=== PATIENT | male | born 1980 | race Hispanic/Latino ===

== ENCOUNTER 2022-10-01 15:30 | Emergency (ER) | payer SELFPAY ==
--- OUTSIDE RECORDS SUMMARY | 2022-10-01 15:32 | XMS REPORT | Continuity of Care Document ---
:1980 Author Organization [facility] t Address [address] [place] [id number] Care Team Providers Name Role Phone Sharpkate Primary Care Physician Problems This patient has no known problems. Allergies, Adverse Reactions, Alerts This patient has no known allergies or adverse reactions. Social History Social Habit Start Date Stop Date Quantity Comments Source Tobacco use and 2017-03-23 2017-03-[address] [facility] exposure 00:00[facility]00 00:00:00 [facility] Alcohol intake 2017-03-23 2017-03-[address] [facility]00 non-drinker of Medical Ce nter alcohol (finding) Sex Assigned At [address] [facility] 00:[facility]:00 00:00:00 [facility] Smoking Status Start Date Stop Date Source Never smoker [facility] Medications This patient has no known medications. Immunizations Ordered Immunization Filled Immunization Date Status Commen ts Source Name Name Tdap 2017-03-[address] [facility] 00:00:00 [facility] Td 2017-03-[address] [facility] 00:00:00 [facility] Procedures This patient has no known procedures. Encounters Start End Encounter Admission Attending Care Care Encounter Source Date/Time Date/Time Type Type Clinicians Facility Department ID 2020-12-17 2020-12-17 Outpatient [facility] 00:00:00 00:00:00 [id number] 2017-04-29 2017-06-17 [facility] [id number] Mobile 00:00:00 00:00:00 [facility] 2017-04-13 2017-04-14 [facility] [id number] Mobile 00:00:00 00:00:00 [facility] Results This patient has no known results.
--- NOTE | 2022-10-01 19:11 | RAD REPORT ---
EXAM DESCRIPTION: CT - Head Brain Wo Cont - 10/01/2022 6:46 pm CLINICAL HISTORY: headache times 2 months Headache, drowsiness COMPARISON: No comparisons TECHNIQUE: All CT scans are performed using dose optimization technique as appropriate and may inclu de automated exposure control or mA/KV adjustment according to patient size. FINDINGS: No intracranial hemorrhage, hydrocephalus or extra-axial fluid collection.No areas of brai n edema or evidence of midline shift. The paranasal sinuses and mastoids are clear. The calvarium is intact. IMPRESSION: No acute intracranial abnormality.
--- NOTE | 2022-10-01 19:24 | EDPHYS ---
Physician Documentation [facility] Name: Wolfgang Trammell Age: 42 yrs Sex: Male : 1980 Arrival Date: 10/01/2022 Time: 15:32 Bed IW1 Private MD: ED Physician Luis F Monroe HPI: 10/01 18:00 This 42 yrs old Male presents to ER via Ambulatory with complaints of Headache.cp 18:00 The patient complains of pain to the top of head and forehead. The patient describes cp the headache as aching, intermittent. Onset: The symptoms/episode began/occurred 1 month(s) ago. Associated signs and symptoms: Pertinent positives: Photophobia Pertinent negatives: altered mental status, fever, neck stiffness, paresthesias, sinus congestion, sinus tenderness, vision loss, vomiting. Severity of symptoms: in the emergency department the pain has improved, moderately. Headache History: Denies prior headaches. the symptoms are aggravated by lights, activity. The patient has not experienced similar symptoms in the past. Historical: - Allergies: 15:47 No Known Allergies; ll1 - PMHx: 15:47 None; ll1 - PSHx: 15:47 jaw SX; L wrist compound FX; ll1 - Immunization history:: Client reports receiving the 2nd dose of the Covid vaccine. - Social history:: Smoking status: Patient reports the use of cigarette tobacco products, smokes one pack cigarettes per day. ROS: 18:05 Constitutional: Negative for body aches, chills, fever, poor PO intake. cp 18:05 Eyes: Negative for injury, pain, redness, and discharge. cp 18:05 ENT: Negative for drainage from ear(s), sore throat, difficulty swallowing, difficulty handling secretions. 18:05 Neck: Negative for pain with movement, pain at rest, stiffness. 18:05 Cardiovascular: Negative for chest pain, palpitations. 18:05 Respiratory: Negative for cough, shortness of breath, wheezing. 18:05 Abdomen/GI: Negative for abdominal pain, vomiting, diarrhea, constipation. 18:05 Back: Negative for pain at rest, pain with movement. 18:05 Neuro: Positive for headache, Negative for altered mental status, dizziness, numbness, syncope, weakness. 18:05 All other systems are negative. Exam: 18:10 Constitutional: The patient appears in no acute distress, alert, awake, cp non-diaphoretic, non-toxic, well developed, well nourished. 18:10 Head/Face: Normocephalic, atraumatic. cp 18:10 Eyes: Periorbital structures: appear normal, Pupils: equal, round, and reactive to cp light and accomodation, Extraocular movements: intact throughout, Conjunctiva: normal, no exudate, no injection, Sclera: no appreciated abnormality, Lids and lashes: appear normal, bilaterally. 18:10 ENT: External ear(s): are unremarkable, Ear canal(s): are normal, clear, TM's: bulging, cp is not appreciated, bilaterally, dullness, bilaterally, erythema, is not appreciated, bilaterally, Nose: is normal, Mouth: Lips: moist, Oral mucosa: moist, Posterior pharynx: Airway: no evidence of obstruction, patent, swelling, is not appreciated, erythema, is not appreciated, exudate, is not appreciated. 18:10 Neck: C-spine: vertebral tenderness, is not appreciated, crepitus, is not appreciated, ROM/movement: is normal, is supple, without pain, no range of motions limitations, no nuchal rigidity. 18:10 Chest/axilla: Inspection: normal. 18:10 Cardiovascular: Rate: normal, Rhythm: regular, Pulses: Pulses are 2+ in right radial artery and left radial artery. JVD: is not appreciated. 18:10 Respiratory: the patient does not display signs of respiratory distress, Respirations: normal, no use of accessory muscles, no retractions, labored breathing, is not present, Breath sounds: are clear throughout, no decreased breath sounds, no stridor, no wheezing. 18:10 Abdomen/GI: Inspection: abdomen appears normal, Palpation: abdomen is soft and non-tender, in all quadrants. 18:10 Back: pain, is absent, ROM is normal. 18:10 Neuro: Orientation: to person, place \T\ time. Mentation: is normal, Cerebellar function: is grossly normal, Motor: moves all fours, strength is normal, Sensation: is normal, Gait: is steady, at a normal pace, without difficulty. Vital Signs: 15:45 BP 136 / 77; Pulse 94; Resp 17; Temp 99.0; Pulse Ox 98% ; Weight 77.11 kg; Height 5 ft. ll1 10 in. (177.80 cm); Pain 0/10; 19:23 BP 127 / 87; Pulse 64; Resp 18; Pulse Ox 98% ; kd3 15:45 Body Mass Index 24.39 (77.11 kg, 177.80 cm) ll1 MDM: 18:15 Patient medically screened. cp 19:00 Differential diagnosis: cluster headache, hypertensive headache, meningitis, cp meningoencephalitis, migraine, sinusitis, subarachnoid bleed, subdural hematoma, tension headache. 19:23 Data reviewed: vital signs, nurses notes, radiologic studies, CT scan. cp 19:23 Counseling: I had a detailed discussion with the patient and/or guardian regarding: the cp historical points, exam findings, and any diagnostic results supporting the discharge/admit diagnosis, radiology results, the need for outpatient follow up, a neurologist, to return to the emergency department if symptoms worsen or persist or if there are any questions or concerns that arise at home. Response to treatment: the patient's symptoms have mildly improved after treatment, and as a result, I will discharge patient. ED course: VSS. CT results negative for acute findings. Will discharge to home for continued monitoring. 10/01 18:33 Order name: Glucose, Ancillary Testing; Complete Time: 19:15 EDMS 10/01 19:16 Interpretation: GLUC,ANCIL 107; Reviewed. 10/01 17:41 Order name: CT Head Brain wo Cont; Complete Time: 19:15 cp 10/01 19:16 Interpretation: Report reviewed. 10/01 17:41 Order name: Accucheck Blood Glucose; Complete Time: 18:24 cp Administered Medications: No medications were administered Point of Care Testing: Blood Glucose: 18:25 Blood Glucose: 107 mg/dL; jl7 Ranges: Critical Glucose Levels:Adult <50 mg/dl or >400 mg/dl <40 mg/dl or >180 mg/dl Disposition Summary: 10/01/22 19:24 Discharge Ordered Location: Home cp Problem: new cp Symptoms: have improved cp Condition: Stable cp Diagnosis - Headache cp Followup: cp - With: Simon Delgadillo MD - When: 1 week - Reason: Recheck today's complaints Discharge Instructions: - General Headache Without Cause cp - Discharge Summary Sheet ll1 Forms: - Medication Reconciliation Form cp - Work release form ll1 - Thank You Letter cp - Antibiotic Education cp - Prescription Opioid Use cp Prescriptions: - Ibuprofen 800 mg Oral Tablet - take 1 tablet by ORAL route every 8 hours As needed take with food; 30 tablet; cp Refills: 0, Product Selection Permitted Addendum: 10/04/2022 08:28 Co-signature as Attending Physician, Luis F Monroe MD I agree with the assessment and c elizabeth plan of care. Signatures: Dispatcher [employer] EDMO Luis F Monroe MD MD cha Page, Corey, PA PA Florentin Juan, RN RN ll1
--- NOTE | 2022-10-01 19:24 | ER ---
Nurse's Notes [facility] Name: Wolfgang Trammell Age: 42 yrs Sex: Male : 1980 Arrival Date: 10/01/2022 Time: 15:32 Bed IW1 Private MD: Diagnosis: Headache Presentation: 10/01 15:45 Chief complaint: Patient states: Bad PISANO's for 1 month, worsening. +photosensitive and ll1 nausea/clammy. Had to leave work early today. Coronavirus screen: Vaccine status: Patient reports receiving the 2nd dose of the covid vaccine. Client denies travel out of the [place] in the last 14 days. headache, Client presents with at least one sign or symptom that may indicate coronavirus-19. Standard/surgical mask placed on the client. Ebola Screen: Patient denies travel to an Ebola-affected area in the 21 days before illness onset. Initial Sepsis Screen: Does the patient meet any 2 criteria? No. Patient's initial sepsis screen is negative. Risk Assessment: Do you want to hurt yourself or someone else? Patient reports no desire to harm self or others. Onset of symptoms was August 31, 2022. 15:45 Method Of Arrival: Ambulatory ll1 15:45 Acuity: WARREN 3 ll1 18:25 Initial Sepsis Screen: Does the patient have a suspected source of infection? No. jl7 Patient's initial sepsis screen is negative. Triage Assessment: 15:48 Headache History: Denies prior headaches. General: Appears in no apparent distress. ll1 Behavior is calm, cooperative, appropriate for age. Pain: Denies pain. Neuro: Reports headache. 19:19 Pain: Pain at worst was 9 out of 10 on a pain scale. Pain began gradually, Also kd3 complains of no other associated symptoms. Historical: - Allergies: 15:47 No Known Allergies; ll1 - PMHx: 15:47 None; ll1 - PSHx: 15:47 jaw SX; L wrist compound FX; ll1 - Immunization history:: Client reports receiving the 2nd dose of the Covid vaccine. - Social history:: Smoking status: Patient reports the use of cigarette tobacco products, smokes one pack cigarettes per day. Screenin:19 Abuse screen: Denies threats or abuse. Denies injuries from another. Nutritional kd3 screening: No deficits noted. Tuberculosis screening: No symptoms or risk factors identified. Fall Risk None identified. Assessment: 19:20 General: Appears in no apparent distress. Pain: Complains of pain in headache. Neuro: kd3 Level of Consciousness is awake, alert, obeys commands, Oriented to person, place, time, situation. Respiratory: Airway is patent Trachea midline Respiratory effort is even, unlabored, Respiratory pattern is regular, symmetrical. 19:21 Reassessment: pt seen by PA in triage. pt to be discharged from [facility]. kd3 Vital Signs: 15:45 BP 136 / 77; Pulse 94; Resp 17; Temp 99.0; Pulse Ox 98% ; Weight 77.11 kg; Height 5 ft. ll1 10 in. (177.80 cm); Pain 0/10; 19:23 BP 127 / 87; Pulse 64; Resp 18; Pulse Ox 98% ; kd3 15:45 Body Mass Index 24.39 (77.11 kg, 177.80 cm) ll1 ED Course: 15:32 Patient arrived in ED. as 15:47 Triage completed. ll1 15:48 Arm band placed on. ll1 17:04 Luis F Pearce PA is PHCP. cp 17:04 Luis F Monroe MD is Attending Physician. cp 18:48 CT Head Brain wo Cont In Process Unspecified. EDMS 19:19 No provider procedures requiring assistance completed. Patient did not have IV access kd3 during this emergency room visit. 19:20 Susanna Lopez RN is Primary Nurse. kd3 19:20 Patient has correct armband on for positive identification. kd3 19:23 Simon Delgadillo MD is Referral Physician. cp Administered Medications: No medications were administered Medication: 19:20 VIS not applicable for this client. kd3 Point of Care Testing: Blood Glucose: 18:25 Blood Glucose: 107 mg/dL; jl7 Ranges: Outcome: 19:20 Discharged to home ambulatory. kd3 19:20 Condition: stable 19:20 Discharge instructions given to patient, Instructed on discharge instructions, follow up and referral plans. Demonstrated understanding of instructions, follow-up care. 19:24 Discharge ordered by . cp 19:26 Patient left the ED. kd3 Signatures: Dispatcher [employer] EDMS Kimberly Alva as Luis F Pearce PA PA Leonor Akhtar RN RN jl7 Florentin Beck RN RN ll1 Susanna Lopez RN RN kd3 Corrections: (The following items were deleted from the chart) 15:49 15:45 Chief complaint: Patient states: Bad PISANO's for 1 month, worsening. +photosensitive ll1 and nausea/clammy. ll1
[2022-10-01 19:30] VITALS: TEMP 99; O2SAT 98
[2022-10-01 19:32] VITALS: BP 127/87
== END 2022-10-01 19:26 | disposition home or self-care (01) ==
LOC: ER 15:30
DX: R51.9 Headache, unspecified (principal); F17.210 Nicotine dependence, cigarettes, uncomplicated
CPT/HCPCS: 70450; 82947; 99283